=== PATIENT | female | born 1950 | race Caucasian/White ===

== ENCOUNTER 2016-04-19 14:27 | Day surgery (SDC) | payer BC ==
[~2016-04-19] VITALS: Ht 160 cm; Wt 74.0 kg
[2016-04-19 15:39] VITALS: Ht 160 cm; Wt 74.0 kg
[2016-04-19 16:13] VITALS: BP 138/63; PULSE 58; RESP 18
[2016-04-19] MEDS ORDERED: ALENDRONATE SODIUM (16:16)
[2016-04-19] MEDS ORDERED: PROPOFOL 60 ML ONE (16:36)
[2016-04-19] MEDS ORDERED: LIDOCAINE 2% (SDV) 5 ML INJ ONE (16:36)
--- NOTE | 2016-04-19 17:49 | GILP ---
DATE OF PROCEDURE: 04/19/2016 DATE: 04/19/2016 NAME OF PROCEDURE: Colonoscopy to cecum. SURGEON: Sergei Curran MD. HISTORY AND INDICATIONS: The patient here for colorectal cancer screening. PREMEDICATION: Monitored anesthesia care by anesthesiologist. INSTRUMENT USED: Olympus colonoscope. PREPARATION: Adequate. TECHNIQUE: After informed consent, with the patient/relatives understanding the procedure, its indic ations potential risks and complications, including but not limited to: allergic reaction, bleeding, perforation, infection, missed lesions, and after all pertinent questions were answered to the delilah ent's satisfaction, the patient/relatives signed the witnessed informed consent. Following this, premedication was administered slowly IV push by under careful cardiovascular and re spiratory monitoring with pulse oximetry, automatic blood pressure and prototype machinist. Once the sedati ve effect was achieved, the patient was placed in the left lateral decubitus position, digital recta l examination was performed. The colonoscope was then introduced and advanced under visual control throughout all segments of the colon including: the rectum, sigmoid, descending colon, splenic flexu re, transverse colon, hepatic flexure, ascending colon and finally reaching the cecum which was ahmet rly identified by transillumination, finger indentation and the ileocecal valve. Careful examinatio n of the mucosa of the lower gastrointestinal tract both on insertion as well as withdrawal of the i nstrument disclosed the following findings: Rectal Examination: No evidence of perirectal disease, no masses. Colonic Mucosa: The colonic mucosa shows diverticulosis in the left side of the colon, which is mod erate in degree. The mucosa is otherwise unremarkable. The ileocecal valve and appendiceal orifice were identified and appeared unremarkable. The instrume nt was withdrawn reexamining the mucosa in detail. No additional abnormalities are noted with excep tion of moderate sized internal hemorrhoids. The instrument was then withdrawn, the patient tolerated the procedure well and was transferred out of the Endoscopy Suite awake and in good condition to continue recovery under observation. IMPRESSION: 1. Left-sided diverticulosis, moderate. 2. Moderate size internal hemorrhoids. PLAN: The patient will be followed up as an outpatient. Annual Hemoccult stool testing is recommen ded and screening colonoscopy in 10 years is recommended. Dictated By: SERGEI CURRAN MS/HAO Conf#: [id number] DID#: [id number] CC: SERGEI CURRAN;*End*
[2016-04-19 17:52] VITALS: BP 139/63; PULSE 52; RESP 18
--- NOTE | 2016-04-19 18:08 | GILP ---
DATE OF PROCEDURE: NAME OF PROCEDURE: Esophagogastroduodenoscopy with biopsies. SURGEON: Mariela Curran MD HISTORY AND INDICATIONS: The patient is being evaluated for pyrosis, regurgitation. PREMEDICATION: Monitored anesthesia care by anesthesiologist. INSTRUMENT USED: Olympus panendoscope. TECHNIQUE: After informed consent, with the patient/relatives understanding the procedure, its andrea cations, potential risks and complications, including but not limited to allergic reaction, bleeding , perforation or infection, and after all pertinent questions were answered to the patients satisfac tion, the patient/relatives signed witnessed informed consent. Following this, premedication was administered slowly IV push under careful cardiovascular and respi ratory monitoring with pulse oximetry, automatic blood pressure and manufacturing group leader. Once the sedative effect was achieved the patient was place in the left lateral decubitus, the panen doscope was introduced and advanced under visual control. Careful examination of the upper gastrointestinal tract, both on insertion as well as withdrawal of the instrument, disclosed the following findings: ESOPHAGUS: The distal esophagus shows significant erythema, edema and ulceration of the mucosa. A sizable hiatal hernia is present. Biopsies were obtained to rule out Eagle esophagus. STOMACH: Upon entrance to the stomach, air was insufflated. The gastric gregorio distended normally. The mucosa of the fundus, body and antrum of the stomach was carefully examined, shows erythema and edema of the mucosa of a moderate degree. Biopsies were obtained to rule out H. pylori infection. PYLORUS: The pylorus appears patent and within normal limits with no evidence of gastric outlet obs truction. DUODENUM: The duodenal mucosa was carefully examined in the duodenal bulb as well as the second por tion of the duodenum and appears unremarkable with no evidence of duodenitis, ulcer or neoplasm. The instrument was then withdrawn. The patient tolerated the procedure well and was transferred out of the endoscopy suite awake and in good condition to continue recovery under observation. IMPRESSION: 1. Erosive ulcerative esophagitis. 2. Hiatal hernia. 3. Gastritis. Rule out Helicobacter pylori infection, biopsies obtained. PLAN: The patient will be treated with omeprazole 40 mg daily. Pathology will be reviewed as soon as available. The patient will require repeat EGD in 8 weeks to assess healing of esophageal ulcera tion. Dictated By: MARIELA CURRNA MS/HOA Conf#: [id number] [facility]#: [id number]
== END 2016-04-19 18:12 | disposition home or self-care (01) ==
LOC: GIL 14:27
PROVIDERS: ATTEND Internal Medicine Gastroenterology
DX: K29.50 Unspecified chronic gastritis without bleeding (principal); K22.10 Ulcer of esophagus without bleeding; K44.9 Diaphragmatic hernia without obstruction or gangrene; K57.90 Diverticulosis of intestine, part unspecified, without perforation or abscess without bleeding; K64.8 Other hemorrhoids; I10 Essential (primary) hypertension
CPT/HCPCS: 88305; 88312

== ENCOUNTER 2016-06-30 12:44 | Day surgery (SDC) | payer BC ==
[~2016-06-30] VITALS: Ht 157.5 cm; Wt 75.5 kg
[~2016-06-30 12:44] MED LIST: ALENDRONATE SODIUM
[2016-06-30 13:29] VITALS: Ht 157.5 cm; Wt 75.5 kg
[2016-06-30] MEDS ORDERED: PROPOFOL 20 ML ONE (14:52)
[2016-06-30 14:58] VITALS: BP 126/59; PULSE 55; RESP 18
[2016-06-30 15:50] VITALS: BP 131/65; RESP 20
--- NOTE | 2016-06-30 16:06 | GILP ---
DATE OF PROCEDURE: 06/30/2016 PROCEDURE: Esophagogastroduodenoscopy with biopsies. BRIEF HISTORY AND INDICATIONS: The patient is being evaluated for dyspepsia and reflux symptoms as well as previous history of esophageal ulcer. PREMEDICATION: Monitored anesthesia care by anesthesiologist. SURGEON: Mariela Curran MD INSTRUMENT USED: Olympus panendoscope. TECHNIQUE: After informed consent, with the patient/relatives understanding the procedure, its indic ations, potential risks and complications, including but not limited to: allergic reaction, bleeding , perforation or infection, and after all pertinent questions were answered to the patients satisfac tion, the patient/relatives signed witnessed informed consent. Following this, premedication was administered slowly IV push under careful cardiovascular and respi ratory monitoring with pulse oximetry, automatic blood pressure and secured entrance monitor. Once the sedative effect was achieved the patient was place in the left lateral decubitus, the panen doscope was introduced and advanced under visual control. Careful examination of the upper gastrointestinal tract, both on insertion as well as withdrawal of the instrument disclosed the following findings: ESOPHAGUS: The previously noted esophageal ulceration is completely healed. There is erythema and edema of the mucosa of a moderate degree. A moderate sized hiatal hernia is p resent. STOMACH: Upon entrance to the stomach, air was insufflated, the gastric gregorio distended normally. T he mucosa of the fundus, body, and antrum of the stomach was carefully examined and shows erythema a nd edema of the mucosa of a moderate degree. Biopsies were obtained to rule out H. pylori infection . PYLORUS: The pylorus appears patent and within normal limits, with no evidence of gastric outlet ob struction. DUODENUM: The duodenal mucosa was carefully examined in the duodenal bulb as well as the second por tion of the duodenum and appears unremarkable with no evidence of duodenitis, ulcer or neoplasm. The instrument was then withdrawn, the patient tolerated the procedure well and was transfer out of the endoscopy suite awake, and in good condition to continue recovery under observation IMPRESSION: 1. Erosive esophagitis, moderate. 2. Hiatal hernia, moderate. 3. Gastritis, moderate. Rule out Helicobacter pylori infection. 4. Complete healing of previously noted esophageal ulcer. PLAN: The patient will be treated with PPIs. Further recommendation will depend on the patient's c linical course as well as review of biopsies. Dictated By: MARIELA CURRAN MS/HOA Conf#: [id number] [facility]#: [id number]
== END 2016-06-30 20:45 | disposition home or self-care (01) ==
LOC: GIL 12:44
PROVIDERS: ATTEND Internal Medicine Gastroenterology
DX: K29.50 Unspecified chronic gastritis without bleeding (principal); K20.8 Other esophagitis; K44.9 Diaphragmatic hernia without obstruction or gangrene; E66.9 Obesity, unspecified; Z68.30 Body mass index [BMI] 30.0-30.9, adult
CPT/HCPCS: 88305; 88312